=== PATIENT | male | born 1980 | race Caucasian/White ===

== ENCOUNTER 2024-07-01 08:48 | Outpatient (CLI) | payer BC, SELFPAY ==
--- NOTE | ~2024-07-01 | US_ITS ---
EXAMINATION: US soft tissue head and neck DATE: 07/01/2024 09:45 INDICATION: Forehead mass. TECHNIQUE: Multiple grayscale and Doppler ultrasound images of the head were obtained. COMPARISON: None FINDINGS: There is no mass in the patient's area of concern in the forehead. IMPRESSION: 1. No mass in the patient's area of concern in the forehead. Reviewed, dictated and finalized at location A.
== END 2024-07-01 08:49 | disposition home or self-care (01) ==
PROVIDERS: PCP Plastic Surgery; Visit Provider Plastic Surgery
DX: R22.0 Localized swelling, mass and lump, head (principal)
CPT/HCPCS: 76536